=== PATIENT | male | born 1955 | race Caucasian/White ===

== ENCOUNTER → 2016-09-10 | Outpatient (CLI) | payer OTHER ==
[~2016-09-10] MED LIST: DIAZ-165 PO; DICL50TA3 PO; GABA-113 PO; HYD50 PO; LISI-461 PO; PRAV40TA2 PO
[2016-09-10 12:46] LABS: ESTIMATED AVERAGE GLUCOSE 131 mg/dl; HA1C FLAG Normal (Normal)
[2016-09-10 13:11] LABS: ALT/SGPT 33 U/L (12-78); BLOOD UREA NITROGEN 21 mg/dl (7-18); BUN/CREATININE RATIO 21.3 (10-20); CALCIUM 9.6 mg/dl (8.5-10.1); CARBON DIOXIDE 30 mmol/L (21-32); CHLORIDE 104 mmol/L (98-107); CHOLESTEROL 221 mg/dl (0-200); CREATININE 0.98 mg/dl (0.60-1.40); GLUCOSE 118 mg/dl (70-99); POTASSIUM 3.9 mmol/L (3.5-5.1); SODIUM 138 mmol/L (136-145); TRIGLYCERIDES 99 mg/dl (0-150); VERY LOW DENSITY LIPOPROT CALC 20 mg/dl
[2016-09-10 13:15] LABS: ALB/GLOB RATIO 1.3 (0.9-2); ALKALINE PHOSPHATASE 74 U/L (45-117); AST/SGOT 15 U/L (15-37); CHOLESTEROL/HDL RATIO 3.7; HDL CHOLESTEROL 59 mg/dl; LDL CHOLESTEROL CALCULATED 142 mg/dl
== END | disposition home or self-care (01) ==
LOC: C.LABPVFM 08:27
PROVIDERS: ATTEND Nurse Practitioner
DX: R73.01 Impaired fasting glucose (principal); I10 Essential (primary) hypertension; E78.5 Hyperlipidemia, unspecified

== ENCOUNTER 2022-05-12 19:32 | Inpatient (IN) ==
[2022-05-12] MEDS ORDERED: methylPREDNISolone 125 MG/2 ML VIAL IV STA (19:46)
[2022-05-12] MEDS ORDERED: ALBUT/IPRATROP 3MG/0.5MG NEB 3 ML VIAL NEB STA (19:46)
[2022-05-12] MEDS ORDERED: SODIUM CHLORIDE 0.9% 500 ML IV STA (19:46)
[2022-05-12] MEDS ORDERED: CEFEPIME 2,000 MG/20 ML VIAL IV STA (19:48)
--- NOTE | 2022-05-12 19:53 | Emergency Department Note ---
Impression & Plan Hypoxia, Wheezing, SOB (shortness of breath), Pneumonia, Coronavirus infection ED Provider Note NAME: RADHAMES LOCKE AGE: 66 SEX: M : 1955 ARRIVES VIA: Walk-In INFORMANT: [Patient][] ED PROVIDER(S): [Sanchez Gonzalez MD] CHIEF COMPLAINT: Short of breath HISTORY OF PRESENT ILLNESS: The patient is a 66-year-old male who has been ill for 4 days. He has had a cough, some shortness of breath and a fever. He has been tired. He has become more more short of breath with exertion. No vomiting or diarrhea, no sick contacts. As per his family, an at home COVID test was negative. His O2 saturation by pulse ox was 87% at home. The patient does not have any coronary disease diagnosed. He does have a history of previous pneumonia. He does smoke. He has a history of diabetes, hypertension and high cholesterol. PMHx/PSHx: See Below SOCIAL HISTORY: See Below. PHYSICAL EXAM: GENERAL: Patient is in no acute distress. HEENT: No acute trauma, normocephalic atraumatic, mucous membranes moist, no nasal congestion. NECK: No stridor, no adenopathy, no meningismus, trachea is midline. LUNGS: Diminished breath sounds bilaterally. There are some wheezes and a few scattered crackles heard bilaterally. No obvious respiratory distress HEART: Without murmurs gallops or rubs, regular rate and rhythm. ABDOMEN: Soft, nontender, bowel sounds positive, no peritonitis. EXTREMITIES: No cyanosis or edema, full range of motion of all the joints without pain or difficulty, no signs for acute trauma. NEUROLOGIC: Oriented x 3, no acute motor or sensory deficits, no focal weakness. SKIN: No rash, no jaundice, no diaphoresis. DIFFERENTIAL DIAGNOSIS: Bronchitis or pneumonia, CHF, RSV, COVID-19, generalized viral illness, anemia, electrolyte imbalance, cardiac ischemia, among others. EMERGENCY DEPARTMENT COURSE/PROCEDURES: Prior/Outside records reviewed: None. ECG per my interpretation: Indication was shortness of breath. The ECG shows a normal sinus rhythm with a rate of 83. There is some baseline artifact. There is a potential old septal infarct versus some poor R wave progression. T here is no ST elevation, no PVCs. The QTc is 411 Continuous Cardiac Monitoring per my interpretation: An order was placed for continuous cardiac monitoring. The monitor shows a rate of 92 with normal sinus rhythm. MEDICAL DECISION MAKING: There is no leukocytosis or concerning anemia. There is a normal platelet count. No coagulopathy. No renal failure or significant electrolyte abnormality. Lactic acid level is not elevated making severe sepsis less likely. No concerning liver enzyme elevation. ECG shows a normal sinus rhythm, no ischemia. Cardiac enzyme testing x1 is not consistent with acute cardiac injury. Respiratory bio fire returned positive for a coronavirus, not COVID-19. Chest film shows a potential lower lung infiltrate on the right per my review. No pneumothorax or CHF. On exam, the patient was wheezing with diminished breath sounds. He was hypoxic. The patient received 500 cc of IV saline, he was given IV Solu-Medrol, IV cefepime, oral Zithromax. He was given a DuoNeb and albuterol via MDI. Despite the above treatment, the patient remains hypoxic when the oxygen is discontinued. He does well when supplemental O2 is applied. The patient appears to have an early pneumonia as well as a bronchitis--his respiratory bio fire is positive, this has caused his shortness of breath and wheezing. Given the hypoxia, hospitalization is indicated. I did speak with the patient and case management, the on-call hospitalist was consulted. DISPOSITION: Patient's presentation and findings warrant a hospital stay. Past Med/Surg History Medical History Diabetes mellitus Hyperlipidemia Hypertension Surgical History No pertinent past surgical history Family History Father Myocardial infarction Denies family history of Ovarian cancer Prostate cancer Breast cancer Colorectal cancer Social History Smoking Status: Current every day smoker Tobacco Type: Cigarettes Age Started Using Tobacco: 25; Cigarettes Per Day: 10; Second Hand Exposure: No; Hx Alcohol Use: Yes Hx Substance Use: No Preferred Language: Kazakh Communication Ability: Effective Instrument And Electrical Technician Required: No marital status: Current Living Situation: Spouse current occupational status: employed current occupation: Drive Truck How many Children do You have: 3 Feels Safe at Home: Yes Childhood Exposure to Second-Hand Smoke: No caffeine: Yes Dental Care, Regularly: Yes Physical Activity Frequency: Daily Seatbelt Use: always Sunscreen Use: No Allergies Allergies Allergy/AdvReac Type Severity Reaction Status Date / Time No Known Allergies Allergy Verified 05/12/22 21:30 Home Meds Home Medications Medication Instructions Recorded Confirmed ketoconazole 2 % topical cream 1 applic topical DAILY PRN flare 05/06/22 05/12/22 ups metformin 500 mg tablet,extended 500 mg PO BID 05/12/22 05/12/22 release 24 hr Previous Rx's Medication Instructions Recorded atorvastatin 40 mg tablet 40 mg PO DAILY #90 tabs 08/20/21 hydrochlorothiazide 50 mg tablet 50 mg PO .COMPLEX #90 tabs 08/20/21 lisinopril 10 mg tablet 10 mg PO DAILY #90 tabs 08/20/21 Results & Data (ED) Vital Signs Vital Signs - 24 hr 05/12/22 19:35 05/12/22 20:07 05/12/22 20:33 Temperature 36.7 C Temperature Source Temporal Artery Scan Pulse Rate 92 H 87 Pulse Rate [Finger] 76 Respiratory Rate 18 18 Blood Pressure 140/91 Blood Pressure [Right Arm] 154/93 H Blood Pressure Mean 107 Blood Pressure Mean [Right Arm] 113 Pulse Oximetry 89 L 100 96 Oxygen Delivery Method Room Air Nebulizer Room Air Oxygen Flow Rate Sepsis Recent Fever Within 48 Hours No Sepsis New/Unexplained Change in Mental Status No Sepsis Action Taken by Nursing No Action Required 05/12/22 21:05 05/12/22 21:05 Temperature Temperature Source Pulse Rate Pulse Rate [Finger] Respiratory Rate Blood Pressure Blood Pressure [Right Arm] Blood Pressure Mean Blood Pressure Mean [Right Arm] Pulse Oximetry 89 L 94 Oxygen Delivery Method Room Air Nasal Cannula Oxygen Flow Rate 2 Sepsis Recent Fever Within 48 Hours Sepsis New/Unexplained Change in Mental Status Sepsis Action Taken by [facility] Medications Current Medication List: was personally reviewed by me Laboratory Data Attestation: I reviewed the patient's lab results. 05/12/22 19:46 05/12/22 19:46 Lab Results 05/12/22 05/12/22 05/12/22 Range/Units 19:46 19:46 19:46 WBC 5.85 (4.8-10.8) K/ul RBC 5.20 (4.70-6.10) M/uL Hgb 15.8 (14.0-18.0) g/dl Hct 45.5 (42.0-52.0) % MCV 87.5 (80.0-100.0) fL MCH 30.4 (25.0-34.0) pg MCHC 34.7 (32.0-36.0) g/dL RDW Std Deviation 41.3 (36.4-46.3) fL RDW Coeff of [place] 12.9 (11.5-14.5) % Plt Count 175 (130-400) K/uL MPV 10.7 (9.4-12.4) fL Immature Gran % (Auto) 0.3 % Neut % (Auto) 69.5 % Lymph % (Auto) 13.3 % [place] % (Auto) 14.5 % Eos % (Auto) 1.5 % Baso % (Auto) 0.9 % Neut # (Auto) 4.06 (1.40-6.50) K/uL Lymph # (Auto) 0.78 L (1.2-3.4) K/uL [place] # (Auto) 0.85 H (0.11-0.59) K/uL Eos # (Auto) 0.09 (0-0.50) K/uL Baso # (Auto) 0.05 (0-0.2) K/uL Immature Gran # (Auto) 0.02 (0.01-0.20) K/uL PT 10.7 (9.0-12.0) Seconds INR 1.0 (0.9-1.1) APTT 30.4 (21.0-31.0) Seconds PTT Ratio 1.1 Sodium 134 L (136-145) mmol/L Potassium 3.8 (3.5-5.1) mmol/L Chloride 97 L (98-107) mmol/L Carbon Dioxide 30 (21-32) mmol/L Anion Gap 7 (3-11) BUN 18 (6-23) mg/dl Creatinine 0.77 (0.6-1.4) mg/dl Est Cr Clr Drug Dosing 116.0 ml/min Est GFR ( Amer) 109.6 ml/min Est GFR (Non-Af Amer) 94.6 ml/min BUN/Creatinine Ratio 23.4 H (10-20) Glucose 273 H (70-99(Fasting)) mg/dl Lactate (0.4-2.0) mmol/L Calcium 9.7 (8.5-10.1) mg/dl Magnesium 2.1 (1.7-2.4) mg/dl Total Bilirubin 0.5 (0.2-1.0) mg/dl AST 14 (13-39) U/L ALT 24 (7-52) U/L Alkaline Phosphatase 91 (34-104) U/L Troponin I High Sens 4.8 (0-20) pg/ml Total Protein 7.9 (6.0-8.3) gm/dl Albumin 4.6 (3.4-5.0) gm/dl Globulin 3.3 (2.5-4.0) gm/dl Albumin/Globulin Ratio 1.4 (0.9-2) Adenovirus (PCR) (NotDetected) B. pertussis DNA (PCR) (NotDetected) B.parapertussis DNA PCR (NotDetected) C. pneumoniae DNA (PCR) (NotDetected) Coronavirus OC43 (PCR) (NotDetected) Coronavirus HKU1 (PCR) (NotDetected) Coronavirus 229E (PCR) (NotDetected) SARS-CoV-2 (PCR) (NotDetected) Coronavirus NL63 (PCR) (NotDetected) Human Metapneumovir PCR (NotDetected) Influenza Type A (PCR) (NotDetected) Influenza Type B (PCR) (NotDetected) M. pneumoniae (PCR) (NotDetected) Parainfluenza 1 (PCR) (NotDetected) Parainfluenza 2 (PCR) (NotDetected) Parainfluenza 3 (PCR) (NotDetected) Parainfluenza 4 (PCR) (NotDetected) RSV (PCR) (NotDetected) Entero/Rhino (PCR) (NotDetected) 05/12/22 05/12/22 Range/Units 19:46 20:02 WBC (4.8-10.8) K/ul RBC (4.70-6.10) M/uL Hgb (14.0-18.0) g/dl Hct (42.0-52.0) % MCV (80.0-100.0) fL MCH (25.0-34.0) pg MCHC (32.0-36.0) g/dL RDW Std Deviation (36.4-46.3) fL RDW Coeff of [place] (11.5-14.5) % Plt Count (130-400) K/uL MPV (9.4-12.4) fL Immature Gran % (Auto) % Neut % (Auto) % Lymph % (Auto) % [place] % (Auto) % Eos % (Auto) % Baso % (Auto) % Neut # (Auto) (1.40-6.50) K/uL Lymph # (Auto) (1.2-3.4) K/uL [place] # (Auto) (0.11-0.59) K/uL Eos # (Auto) (0-0.50) K/uL Baso # (Auto) (0-0.2) K/uL Immature Gran # (Auto) (0.01-0.20) K/uL PT (9.0-12.0) Seconds INR (0.9-1.1) APTT (21.0-31.0) Seconds PTT Ratio Sodium (136-145) mmol/L Potassium (3.5-5.1) mmol/L Chloride (98-107) mmol/L Carbon Dioxide (21-32) mmol/L Anion Gap (3-11) BUN (6-23) mg/dl Creatinine (0.6-1.4) mg/dl Est Cr Clr Drug Dosing ml/min Est GFR ( Amer) ml/min Est GFR (Non-Af Amer) ml/min BUN/Creatinine Ratio (10-20) Glucose (70-99(Fasting)) mg/dl Lactate 1.5 (0.4-2.0) mmol/L Calcium (8.5-10.1) mg/dl Magnesium (1.7-2.4) mg/dl Total Bilirubin (0.2-1.0) mg/dl AST (13-39) U/L ALT (7-52) U/L Alkaline Phosphatase (34-104) U/L Troponin I High Sens (0-20) pg/ml Total Protein (6.0-8.3) gm/dl Albumin (3.4-5.0) gm/dl Globulin (2.5-4.0) gm/dl Albumin/Globulin Ratio (0.9-2) Adenovirus (PCR) Not Detected (NotDetected) B. pertussis DNA (PCR) Not Detected (NotDetected) B.parapertussis DNA PCR Not Detected (NotDetected) C. pneumoniae DNA (PCR) Not Detected (NotDetected) Coronavirus OC43 (PCR) DETECTED A* (NotDetected) Coronavirus HKU1 (PCR) Not Detected (NotDetected) Coronavirus 229E (PCR) Not Detected (NotDetected) SARS-CoV-2 (PCR) Not Detected (NotDetected) Coronavirus NL63 (PCR) Not Detected (NotDetected) Human Metapneumovir PCR Not Detected (NotDetected) Influenza Type A (PCR) Not Detected (NotDetected) Influenza Type B (PCR) Not Detected (NotDetected) M. pneumoniae (PCR) Not Detected (NotDetected) Parainfluenza 1 (PCR) Not Detected (NotDetected) Parainfluenza 2 (PCR) Not Detected (NotDetected) Parainfluenza 3 (PCR) Not Detected (NotDetected) Parainfluenza 4 (PCR) Not Detected (NotDetected) RSV (PCR) Not Detected (NotDetected) Entero/Rhino (PCR) Not Detected (NotDetected) Administered Medications Discontinued Medications Albuterol (Albut/Ipratrop 3mg/0.5mg Neb 3 Ml Vial) 3 ml NEB NOW STA; Protocol Stop: 05/12/22 19:47 Last Admin: 05/12/22 20:01 Dose: 3 ml Documented By: FABIANA Albuterol (Albuterol Hfa 8 Gm Inhaler) 3 puffs INH NOW ONE Stop: 05/12/22 20:35 Last Admin: 05/12/22 21:04 Dose: 3 puffs Documented By: THOMAS Sodium Chloride (Nss) 500 mls @ 999 mls/hr IV .Q31M STA Stop: 05/12/22 20:16 Last Infusion: 05/12/22 20:46 Dose: 0 mls/hr Documented By: Admin: 05/12/22 20:01 Dose: 999 mls/hr Documented By: FABIANA Cefepime HCl (Maxipime) 2,000 mg in 20 mls @ 5 mls/min IV NOW STA; Protocol Stop: 05/12/22 19:51 Last Admin: 05/12/22 20:17 Dose: 5 mls/min Documented By: FABIANA Methylprednisolone (Methylprednisolone 125 Mg/2 Ml Vial) 60 mg IV NOW STA Stop: 05/12/22 19:47 Last Admin: 05/12/22 20:00 Dose: 60 mg Documented By: FABIANA Imaging Data Radiologist's Impression: Chest X-Ray 05/12/22 19:46 XR chest 1V portable HISTORY: Dyspnea COMPARISON: None. FINDINGS: The lungs are clear. Cardiac silhouette is normal in size. No pleural effusions. No pneumothorax. IMPRESSION: No acute process. ACT 112: Negative or not required by law. Electronically signed by: Wayne Talley M.D. 05/12/2022 8:06 PM Discharge Plan Visit Data Chief Complaint: Respiratory Problems Stated Complaint: RESPIRATORY PROBLEMS,SOB ED Provider: Sanchez Gonzalez Discharge Problem: Hypoxia, Wheezing, SOB (shortness of breath), Pneumonia, Coronavirus infection Patient Disposition: Admitted As Inpatient Condition: Fair Forms Stand Alone Forms: My [facility] Prescriptions Prescriptions: No Action atorvastatin 40 mg tablet 40 mg PO DAILY Qty: 90 3RF lisinopril 10 mg tablet 10 mg PO DAILY Qty: 90 3RF hydrochlorothiazide 50 mg tablet 50 mg PO .COMPLEX Qty: 90 3RF Rx Instructions: 50 mg PO daily in the morning with orange juice.; ketoconazole 2 % cream 1 applic topical DAILY PRN (Reason: flare ups) metformin 500 mg tablet extended release 24 hr 500 mg PO BID Referrals Referrals: Pricilla Rojas CRNP [Primary Care Provider] -
--- NOTE | 2022-05-12 20:07 | XRay Report ---
XR chest 1V portable HISTORY: Dyspnea COMPARISON: None. FINDINGS: The lungs are clear. Cardiac silhouette is normal in size. No pleural effusions. No pneumot horax. IMPRESSION: No acute process. ACT 112: Negative or not required by law. Electronically signed by: Wayne Talley M.D. 05/12/2022 8:06 PM
[2022-05-12 20:10] LABS: Basophils # (auto) 0.05 K/uL (0-0.2); Basophils % (auto) 0.9 %; Eosinophils # (auto) 0.09 K/uL (0-0.50); Eosinophils % (auto) 1.5 %; Hematocrit (blood only) 45.5 % (42.0-52.0); Hemoglobin 15.8 g/dl (14.0-18.0); Immature Granulocytes # (auto) 0.02 K/uL (0.01-0.20); Immature Granulocytes % (auto) 0.3 %; Lymphocytes # (auto) 0.78 K/uL (1.2-3.4); Lymphocytes % (auto) 13.3 %; Mean Corpuscular Hemoglobin 30.4 pg (25.0-34.0); Mean Corpuscular Hgb Conc 34.7 g/dL (32.0-36.0); Mean Corpuscular Volume 87.5 fL (80.0-100.0); Mean Platelet Volume 10.7 fL (9.4-12.4); Monocytes # (auto) 0.85 K/uL (0.11-0.59); Monocytes % (auto) 14.5 %; Neutrophils # (auto) 4.06 K/uL (1.40-6.50); Neutrophils % (auto) 69.5 %; Platelet Count 175 K/uL (130-400); RDW Coefficient of Variation 12.9 % (11.5-14.5); RDW Standard Deviation 41.3 fL (36.4-46.3); White Blood Count 5.85 K/ul (4.8-10.8)
[2022-05-12 20:24] LABS: Albumin Globulin Ratio 1.4 (0.9-2); Albumin Level 4.6 gm/dl (3.4-5.0); BUN Creatinine Ratio 23.4 (10-20); Bilirubin,Total 0.5 mg/dl (0.2-1.0); Calcium 9.7 mg/dl (8.5-10.1); Est GFR (African American) 109.6 ml/min; Est GFR (Non-African American) 94.6 ml/min; Globulin 3.3 gm/dl (2.5-4.0); Magnesium 2.1 mg/dl (1.7-2.4); Potassium 3.8 mmol/L (3.5-5.1); Total Protein 7.9 gm/dl (6.0-8.3)
[2022-05-12 20:30] LABS: Troponin I High Sensitivity 4.8 pg/ml (0-20)
[2022-05-12] MEDS ORDERED: ALBUTEROL HFA 8 GM INHALER INH ONE (20:34)
[2022-05-12 20:54] LABS: Partial Thromboplastin Ratio 1.1; Partial Thromboplastin Time 30.4 Seconds (21.0-31.0); Prothrombin Time 10.7 Seconds (9.0-12.0)
[2022-05-12 21:01] LABS: Adenovirus PCR Not Detected (NotDetected); Bordetella parapertussis PCR Not Detected (NotDetected); Bordetella pertussis PCR Not Detected (NotDetected); Chlamydia pneumoniae PCR Not Detected (NotDetected); Coronavirus 229E PCR Not Detected (NotDetected); Coronavirus CoV-2 (COVID19)PCR Not Detected (NotDetected); Coronavirus HKU1 PCR Not Detected (NotDetected); Coronavirus NL63 PCR Not Detected (NotDetected); Human Metapneumovirus PCR Not Detected (NotDetected); Influenza A PCR Not Detected (NotDetected); Influenza B PCR Not Detected (NotDetected); Mycoplasma pneumoniae PCR Not Detected (NotDetected); Parainfluenza Virus 1 PCR Not Detected (NotDetected); Parainfluenza Virus 2 PCR Not Detected (NotDetected); Parainfluenza Virus 3 PCR Not Detected (NotDetected); Parainfluenza Virus 4 PCR Not Detected (NotDetected); Respiratory Syncytial VirusPCR Not Detected (NotDetected); Rhinovirus/Enterovirus PCR Not Detected (NotDetected)
[2022-05-12 21:11] LABS: Coronavirus OC43PCR DETECTED (NotDetected)
[2022-05-12] MEDS ORDERED: AZITHROMYCIN 250 MG TAB PO ONE (21:14)
--- NOTE | 2022-05-12 22:17 | History & Physical Report ---
Date of Service May 12, 2022 Assessment & Plan (1) Hypoxia: Plan: Patient is a 66-year-old male with a past medical history of hyperlipidemia, hypertension, and diabetes on metformin who presents to the emergency department for 3 to 4-day history of progressively worsening shortness of breath and congestion. Patient was put on supplemental oxygen and is currently hemodynamically stable. Patient is status post cefepime, azithromycin, initial steroid dose, and breathing treatment. -Admit to [facility] on supplemental oxygen -Suspect undiagnosed COPD with COPD exacerbation due to coronavirus infection. Other differential could include early viral pneumonia. -First dose of azithromycin given in ED, 3-day course of 500 mg IV orders placed -Steroids for 5 days -Incentive spirometry and flutter valve ordered -DuoNeb nebulizer every 4 hour as needed -Recommend nicotine cessation -Nicotine patch ordered -Procalcitonin pending, but suspect as above (2) Wheezing: Plan: See plan above (3) Coronavirus infection: Plan: See plan above (4) Diabetes mellitus: Plan: -Metformin switch to basal bolus insulin with sliding scale (5) Hyperlipidemia: Plan: -Continue atorvastatin (6) Hypertension: Plan: -contine lisinopril and HCTZ Plan Diet: Carb consistent Disposition: Admit to [facility] with supplemental oxygen DVT prophylaxis: Lovenox CODE STATUS: Full code History of Present Illness Chief Complaint: SOB Primary Care Provider: SHAYNA Ascencio Patient is a 66-year-old male with a past medical history of hyperlipidemia, hypertension, and diabetes on metformin who presents to the emergency department for 3 to 4-day history of progressively worsening shortness of breath and congestion. Patient reports that he was getting shortness of breath with exertion, however, today he was experiencing the shortness of breath at rest. He has a pulse ox at home and found that his pulse ox was in the 80s. This pr ompted him to come to the emergency room for further evaluation. He does have a 20+ pack year smoking history currently smoking a pack of cigarettes per day. No formal diagnosis of COPD. Reports that he has never wheezed or had difficulty with breathing before. Reports that he never measured his temperature but he was feeling warm and had chills. No vomiting, diarrhea, nausea, headache. Patient is COVID vaccinated. No other complaints at this time. ED course: Lab results were significant for hyponatremia at 134, glucose of 273, most recent hemoglobin A1c of 7.2, and positive coronavirus OC 43 detected. Patient is COVID-negative. Chest x-ray taken did not show any acute pulmonary or cardiac pathology. Patient was given cefepime, azithromycin, methylprednisone, and breathing treatments. The hospital service was then consulted for admission to the hospital. Allergies Allergy/AdvReac Type Severity Reaction Status Date / Time No Known Allergies Allergy Verified 05/16/22 10:38 Home Medications Medication Instructions Recorded Confirmed Type atorvastatin 40 mg tablet 40 mg PO DAILY #90 tabs 08/20/21 05/16/22 Rx hydrochlorothiazide 50 mg tablet 50 mg PO .COMPLEX #90 tabs 08/20/21 05/16/22 Rx lisinopril 10 mg tablet 10 mg PO DAILY #90 tabs 08/20/21 05/16/22 Rx ketoconazole 2 % topical cream 1 applic topical DAILY PRN flare 05/06/22 05/16/22 History ups metformin 500 mg tablet,extended 500 mg PO BID 05/12/22 05/16/22 History release 24 hr azithromycin 250 mg tablet 500 mg PO Q24H #2 tabs 05/14/22 05/16/22 Rx prednisone 10 mg tablet 10 mg PO DAILY #20 tabs 05/14/22 05/16/22 Rx Past Med/Surg History Medical History Diabetes mellitus Hyperlipidemia Hypertension Surgical History No pertinent past surgical history Family History Father Myocardial infarction Denies family history of Ovarian cancer Prostate cancer Breast cancer Colorectal cancer Social History Smoking Status: Current every day smoker Tobacco Type: Cigarettes Age Started Using Tobacco: 25; Cigarettes Per Day: 10; Second Hand Exposure: No; Hx Alcohol Use: No Hx Substance Use: No Preferred Language: Sami Communication Ability: Effective Product Sales Representative Required: No Beliefs That Will Affect Care: None marital status: Current Living Situation: Spouse current occupational status: employed current occupation: Drive Truck How many Children do You have: 3 Feels Safe at Home: Yes Childhood Exposure to Second-Hand Smoke: No caffeine: Yes Dental Care, Regularly: Yes Physical Activity Frequency: Daily Seatbelt Use: always Sunscreen Use: No Assistive Devices: None Review of Systems Review of Systems: All systems reviewed & are unremarkable except as noted in HPI & below Physical Exam Constitutional: WD/WN, vitals as above Eyes: + anicteric sclerae ENMT: external ear and nose normal, oropharynx normal Neck: trachea midline, no thyromegaly Respiratory: normal respiratory effort; no respiratory distress Auscultation: + wheezes and + bronchial breath sounds Cardiovascular: RRR, no murmur, no edema Gastrointestinal (Abdomen): normal bowel sounds, soft, nontender, no hepatosplenomegaly Musculoskeletal: Head/Neck/Chest: normocephalic and head atraumatic Skin: no rashes, warm and dry Neurologic: moves all extremities Psychiatric: A+Ox3, euthymic affect Lymphatic: no cervical or axillary lymphadenopathy Results & Data Results & Data Vital Signs (Past 12 Hours) Vital Signs Temp Pulse Pulse Resp BP BP Pulse Ox 05/12/22 21:05 94 05/12/22 21:05 89 L 05/12/22 20:33 76 18 154/93 H 96 05/12/22 20:07 87 100 05/12/22 19:35 36.7 C 92 H 18 140/91 89 L O2 Del Method O2 Flow Rate 05/12/22 21:05 Nasal Cannula 2 05/12/22 21:05 Room Air 05/12/22 20:33 Room Air 05/12/22 20:07 Nebulizer 05/12/22 19:35 Room Air Code Status & VTE Plan VTE Prophylaxis Plan VTE Prophylaxis will be ordered: Yes Supervising Physician Co-Signing Physician Notes attending addendum: I have physically seen this patient, have supervised the medical residents activities, and agree with the H&P unless as otherwise noted. Assessment and Plan: Acute respiratory failure with hypoxia- Viral study positive for coronavirus OC 43 In the ED received the following: NSS 500 mL, DuoNeb treatment, cefepime 2 g IV, Solu-Medrol 60 mg IV and azithromycin 500 mg p.o. Methylprednisolone 40 mg IV every 12 hours Incentive spirometry and flutter valve Duonebs every 4 hours while awake and every 2 hours when necessary. Continue azithromycin p.o. Diabetes mellitus- Hold metformin Placed on Accu-Cheks with NovoLog SSI Check hemoglobin A1c Hyperlipidemia- Continue atorvastatin check a fasting lipid panel Hypertension- Continue lisinopril and HCTZ Remaining orders and notations as noted
[2022-05-12] MEDS ORDERED: ALBUT/IPRATROP 3MG/0.5MG NEB 3 ML VIAL NEB PRN (23:16)
[2022-05-12] MEDS ORDERED: DEXTROSE 50% 50 ML SYRINGE IV PRN (23:16)
[2022-05-12] MEDS ORDERED: GLUCOSE 10 TAB/TUBE PO PRN (23:16)
[2022-05-12] MEDS ORDERED: ONDANSETRON INJ 2 MG/ML 2 ML VIAL IV PRN (23:16)
[2022-05-12] MEDS ORDERED: CARBOHYDRATES FOR HYPOGLYCEMIA PO PRN (23:16)
[2022-05-12] MEDS ORDERED: GLUCOSE 40% GEL 15 GM TUBE PO PRN (23:16)
[2022-05-12] MEDS ORDERED: ACETAMINOPHEN 325 MG TAB PO PRN (23:16)
[2022-05-12] MEDS ORDERED: GLUCAGON FOR INJ 1 MG VIAL SQ PRN (23:16)
[2022-05-12] MEDS ORDERED: POLYETHYLENE (MIRALAX) 17 GM PACK PO PRN (23:16)
[2022-05-12] MEDS ORDERED: INFLUENZA VACCINE HIGH DOSE PF 65+ 0.7 ML SYR IM ONE (23:28)
[2022-05-12] MEDS: LANTUS PER UNIT CHARGE SQ SCH (23:47)
[2022-05-12] MEDS: INSULIN ASPART PER UNIT CHARGE SC SCH (23:47)
[2022-05-13] MEDS: ENOXAPARIN INJ 40 MG/0.4 ML SYR SQ SCH ×2 (00:10→21:01)
[2022-05-13] MEDS ORDERED: predniSONE 20 MG TAB PO SCH (09:00)
[2022-05-13] MEDS: NICOTINE 14 MG/24 HR PATCH TD SCH (09:17)
[2022-05-13] MEDS: hydroCHLOROthiazide 25 MG TAB PO SCH (09:18)
[2022-05-13] MEDS: ATORVASTATIN 40 MG TAB PO SCH (09:18)
[2022-05-13] MEDS: lisinopril 10 MG TAB PO SCH (09:19)
[2022-05-13] MEDS: LANTUS PER UNIT CHARGE SQ SCH ×2 (09:25→21:01)
[2022-05-13] MEDS: INSULIN ASPART PER UNIT CHARGE SC SCH ×4 (09:26→21:01)
--- NOTE | 2022-05-13 11:01 | Electrocardiogram Report ---
Test Reason : Blood Pressure : / mmHG Vent. Rate : 083 BPM Atrial Rate : 083 BPM P-R Int : 156 ms QRS Dur : 084 ms QT Int : 350 ms P-R-T Axes : 072 068 063 degrees QTc Int : 411 ms Poor data quality, interpretation may be adversely affected Normal sinus rhythm Possible Left atrial enlargement Abnormal ECG No previous ECGs available Confirmed by Yunier Quintana ([id number]) on 05/13/2022 11:01:46 AM Referred By: REFERRED SELF Confirmed By:Jey Quintana
--- NOTE | 2022-05-13 15:00 | Hospitalist Progress Note ---
Date of Service May 13, 2022 Assessment & Plan (1) Hypoxia: Plan: -Suspect undiagnosed COPD with COPD exacerbation due to coronavirus infection. Other differential could include early viral pneumonia. -Continue azithromycin 3-day course of 500 mg IV -Patient is still wheezing quite a bit and is also dyspneic on exertion We will switch to IV steroids. Discontinue p.o. prednisone for the time being. -Incentive spirometry and flutter valve ordered -DuoNeb nebulizer every 4 hour as needed -Recommend nicotine cessation -Nicotine patch ordered -Procalcitonin negative (2) Wheezing: Plan: See plan above (3) Coronavirus infection: Plan: See plan above (4) Diabetes mellitus: Plan: -Metformin switch to basal bolus insulin with sliding scale (5) Hyperlipidemia: Plan: -Continue atorvastatin (6) Hypertension: Plan: -contine lisinopril and HCTZ Plan Diet: Carb consistent Disposition: Admit to [facility] with supplemental oxygen DVT prophylaxis: Lovenox CODE STATUS: Full code Admission and Anticipated Discharge Date Admission Date: May 12, 2022 Subjective Patient states that he is less short of breath today but is still getting short of breath on exertion. Review of Systems Review of Systems: All systems reviewed & are unremarkable except as noted in Subjective Physical Exam Physical Exam: General: Awake, conversant Heart: S1, S2/regular rate and rhythm, no murmur rubs or gallops Lungs: Bilateral wheezing with prolonged expiration. Normal effort Abdomen: Soft/nontender/nondistended. No hepatosplenomegaly Extremities: No clubbing/cyanosis. No edema Behavior: Appropriate, cooperative Results & Data Results & Data Vital Signs (Past 12 Hours) Vital Signs Temp Pulse Resp BP Pulse Ox O2 Del Method O2 Flow Rate 05/13/22 08:15 Nasal Cannula 2 05/13/22 09:15 68 151/85 H 93 Nasal Cannula 2 05/13/22 07:44 36.8 C 73 18 149/94 H 94 Nasal Cannula 1 Laboratory Results Abnormal lab results 05/12/22 05/12/22 05/12/22 Range/Units 19:46 19:46 19:46 Lymph # (Auto) 0.78 L (1.2-3.4) K/uL [place] # (Auto) 0.85 H (0.11-0.59) K/uL Sodium 134 L (136-145) mmol/L Chloride 97 L (98-107) mmol/L BUN/Creatinine Ratio 23.4 H (10-20) Glucose 273 H (70-99(Fasting)) mg/dl POC Glucose (70-99) mg/dl Coronavirus OC43 (PCR) DETECTED A* (NotDetected) 05/12/22 05/13/22 05/13/22 Range/Units 23:18 08:00 12:07 Lymph # (Auto) (1.2-3.4) K/uL [place] # (Auto) (0.11-0.59) K/uL Sodium (136-145) mmol/L Chloride (98-107) mmol/L BUN/Creatinine Ratio (10-20) Glucose (70-99(Fasting)) mg/dl POC Glucose 203 H 134 H 127 H (70-99) mg/dl Coronavirus OC43 (PCR) (NotDetected) Diagnostic Findings Chest X-Ray 05/12/22 19:46 XR chest 1V portable HISTORY: Dyspnea COMPARISON: None. FINDINGS: The lungs are clear. Cardiac silhouette is normal in size. No pleural effusions. No pneumothorax. IMPRESSION: No acute process. ACT 112: Negative or not required by law. Electronically signed by: Wayne Talley M.D. 05/12/2022 8:06 PM PG Care Time/CCT Total # of Minutes Spent Total Time Spent with Patient: Total time spent is greater than 50% in coordination of care (as documented) at patient's floor/unit and/or counseling patient: Coding Level of Care Code 88204 SUB INP/OBS CARE 2/35MIN Diagnoses Hypoxia R09.02 Wheezing R06.2 Coronavirus infection B34.2 Diabetes mellitus E11.9 Hyperlipidemia E78.5 Hypertension I10
[2022-05-13] MEDS: AZITHROMYCIN 250 MG TAB PO SCH (17:55)
[2022-05-13] MEDS: methylPREDNISolone 40 MG in SYRINGE 0 ML IV SCH (21:01)
[2022-05-14] MEDS: ATORVASTATIN 40 MG TAB PO SCH (08:23)
[2022-05-14] MEDS: hydroCHLOROthiazide 25 MG TAB PO SCH (08:24)
[2022-05-14] MEDS: lisinopril 10 MG TAB PO SCH (08:24)
[2022-05-14] MEDS: NICOTINE 14 MG/24 HR PATCH TD SCH (08:25)
[2022-05-14] MEDS: methylPREDNISolone 40 MG in SYRINGE 0 ML IV SCH (08:26)
[2022-05-14] MEDS: LANTUS PER UNIT CHARGE SQ SCH ×2 (09:17→21:00)
[2022-05-14] MEDS: INSULIN ASPART PER UNIT CHARGE SC SCH ×4 (09:18→20:52)
--- NOTE | 2022-05-14 16:58 | Hospitalist Progress Note ---
Date of Service May 14, 2022 Assessment & Plan (1) Hypoxia: Plan: -Suspect undiagnosed COPD with COPD exacerbation due to coronavirus infection. Other differential could include early viral pneumonia. -Continue azithromycin 3-day course of 500 mg IV -Patient is still wheezing and is also dyspneic on exertion Discontinue IV steroids today. Start p.o. prednisone from tomorrow -Incentive spirometry and flutter valve ordered -DuoNeb nebulizer every 4 hour as needed -Recommend nicotine cessation -Nicotine patch ordered -Procalcitonin negative Two-step test to see if needing oxygen to go home with (2) Wheezing: Plan: See plan above (3) Coronavirus infection: Plan: See plan above (4) Diabetes mellitus: Plan: -Metformin switch to basal bolus insulin with sliding scale (5) Hyperlipidemia: Plan: -Continue atorvastatin (6) Hypertension: Plan: -contine lisinopril and HCTZ Plan Diet: Carb consistent [facility]: [facility] DVT prophylaxis: Lovenox CODE STATUS: Full code Admission and Anticipated Discharge Date Admission Date: May 12, 2022 Subjective Patient states that he is less short of breath today but is still getting short of breath on exertion. Review of Systems Review of Systems: All systems reviewed & are unremarkable except as noted in Subjective Physical Exam Physical Exam: General: Awake, conversant Heart: S1, S2/regular rate and rhythm, no murmur rubs or gallops Lungs: Bilateral wheezing slightly better today with prolonged expiration. Normal effort Abdomen: Soft/nontender/nondistended. No hepatosplenomegaly Extremities: No clubbing/cyanosis. No edema Behavior: Appropriate, cooperative Results & Data Results & Data Vital Signs (Past 12 Hours) Vital Signs Temp Pulse Pulse Resp BP Pulse Ox O2 Del Method 05/14/22 15:21 36.6 C 70 18 128/80 92 Nasal Cannula 05/14/22 07:56 36.7 C 63 16 127/81 93 Nasal Cannula 05/14/22 07:15 Nasal Cannula O2 Flow Rate 05/14/22 15:21 2 05/14/22 07:56 2 05/14/22 07:15 2 PG Care Time/CCT Total # of Minutes Spent Total Time Spent with Patient: Total time spent is greater than 50% in coordination of care (as documented) at patient's floor/unit and/or counseling patient: Coding Level of Care Code 58914 SUB INP/OBS CARE 35MIN Diagnoses Hypoxia R09.02 Wheezing R06.2 Coronavirus infection B34.2 Diabetes mellitus E11.9 Hyperlipidemia E78.5 Hypertension I10
[2022-05-14] MEDS: AZITHROMYCIN 250 MG TAB PO SCH (18:36)
[2022-05-14] MEDS: ENOXAPARIN INJ 40 MG/0.4 ML SYR SQ SCH (21:00)
[2022-05-15 08:59] LABS: Creatinine Clr Calc Pharmacy 108.8 ml/min; Est GFR (African American) 106.8 ml/min; Est GFR (Non-African American) 92.1 ml/min
[2022-05-15] MEDS ORDERED: predniSONE 20 MG TAB PO SCH (09:00)
[2022-05-15] MEDS: lisinopril 10 MG TAB PO SCH (09:12)
[2022-05-15] MEDS: ATORVASTATIN 40 MG TAB PO SCH (09:12)
[2022-05-15] MEDS: hydroCHLOROthiazide 25 MG TAB PO SCH (09:12)
[2022-05-15] MEDS: NICOTINE 14 MG/24 HR PATCH TD SCH (09:12)
[2022-05-15] MEDS: INSULIN ASPART PER UNIT CHARGE SC SCH (09:17)
[2022-05-15] MEDS: LANTUS PER UNIT CHARGE SQ SCH (09:17)
--- NOTE | 2022-05-15 10:39 | Discharge Summary ---
Date of Service May 15, 2022 Admission HPI Per Admitting Provider Patient is a 66-year-old male with a past medical history of hyperlipidemia, hypertension, and diabetes on metformin who presents to the emergency department for 3 to 4-day history of progressively worsening shortness of breath and congestion. Patient reports that he was getting shortness of breath with exertion, however, today he was experiencing the shortness of breath at rest. He has a pulse ox at home and found that his pulse ox was in the 80s. This prompted him to come to the emergency room for further evaluation. He does have a 20+ pack year smoking history currently smoking a pack of cigarettes per day. No formal diagnosis of COPD. Reports that he has never wheezed or had difficulty with breathing before. Reports that he never measured his temperature but he was feeling warm and had chills. No vomiting, diarrhea, nausea, headache. Patient is COVID vaccinated. No other complaints at this time. ED course: Lab results were significant for hyponatremia at 134, glucose of 273, most recent hemoglobin A1c of 7.2, and positive coronavirus OC 43 detected. Patient is COVID-negative. Chest x-ray taken did not show any acute pulmonary or cardiac pathology. Patient was given cefepime, azithromycin, methylprednisone, and breathing treatments. The hospital service was then consulted for admission to the hospital. Admission Exam Per Admitting Provider Constitutional: WD/WN, vitals as above Eyes: + anicteric sclerae ENMT: external ear and nose normal, oropharynx normal Neck: trachea midline, no thyromegaly Respiratory: normal respiratory effort; no respiratory distress Auscultation: + wheezes and + bronchial breath sounds Cardiovascular: RRR, no murmur, no edema Gastrointestinal (Abdomen): normal bowel sounds, soft, nontender, no hepatosplenomegaly Musculoskeletal: Head/Neck/Chest: normocephalic and head atraumatic Skin: no rashes, warm and dry Neurologic: moves all extremities Psychiatric: A+Ox3, euthymic affect Lymphatic: no cervical or axillary lymphadenopathy Principal Diagnosis Probable undiagnosed COPD with exacerbation due to coronavirus infection Discharge Exam General: Awake, conversant Heart: S1, S2/regular rate and rhythm, no murmur rubs or gallops Lungs: Bilateral wheezing slightly better today with prolonged expiration. Normal effort Abdomen: Soft/nontender/nondistended. No hepatosplenomegaly Extremities: No clubbing/cyanosis. No edema Behavior: Appropriate, cooperative Discharge Data Allergies Allergy/AdvReac Type Severity Reaction Status Date / Time No Known Allergies Allergy Verified 05/12/22 21:30 Consultations 05/12/22 21:29 ED Decision to Admit Stat Hospital Course (1) Hypoxia: -Suspect undiagnosed COPD with COPD exacerbation due to coronavirus infection. Other differential could include early viral pneumonia. -Discharged on p.o. azithromycin to complete a course Patient is not wheezing as much anymore. We will discharge him on p.o. prednisone tapering dose -Patient is not needing oxygen on exertion -Procalcitonin negative Advised on smoking cessation Advised to follow-up with PCP in 1 week Advised that the patient will need pulmonary function test to diagnose and manage COPD (2) Wheezing: See plan above (3) Coronavirus infection: See plan above (4) Diabetes mellitus: -Metformin switch to basal bolus insulin with sliding scale (5) Hyperlipidemia: -Continue atorvastatin (6) Hypertension: -contine lisinopril and HCTZ Plan Diet: Carb consistent CODE STATUS: Full code Total Time Total Time Spent Total Time Spent (In Minutes): 35 Discharge Plan Discharge Items Patient Disposition: Home - Self-Care Reason For Visit: SOB Discharge Diagnosis: Acute on chronic COPD, likely undiagnosed COPD, coronavirus infection Condition on Discharge: Fair Activity: Resume your previous activity Non-emergency contact: Primary Care Provider Call non-emergency contact if: your symptoms worsen Follow-up/Referrals: Pricilla Rojas CRNP [Primary Care Provider] - 05/23/22 10:30 am Diet: Regular Addtl Attending Provider Instructions: Advised to follow-up with PCP in 1 week Advised to quit smoking Pending Studies at Discharge: No Stand-Alone Forms: [facility], Smoking Cessation Medications and DC Order Prescriptions: New azithromycin 250 mg Tablet 500 mg PO Q24H Qty: 2 0RF prednisone 10 mg tablet 10 mg PO DAILY Qty: 20 0RF Rx Instructions: 4 tabs for 2 days, then drop by 1 tab every 2 days, then stop Continued atorvastatin 40 mg tablet 40 mg PO DAILY Qty: 90 3RF lisinopril 10 mg tablet 10 mg PO DAILY Qty: 90 3RF hydrochlorothiazide 50 mg tablet 50 mg PO .COMPLEX Qty: 90 3RF Rx Instructions: 50 mg PO daily in the morning with orange juice.; ketoconazole 2 % cream 1 applic topical DAILY PRN (Reason: flare ups) metformin 500 mg tablet extended release 24 hr 500 mg PO BID Discharge Orders: Discharge Order (Routine); Ordered 05/15/22 Ordered By: Jamie Trevino Admission Data Admit Date/Time: 05/12/22 22:09 Attending Provider: Jamie Trevino Admit Provider: Sabas Gonzalez Primary Care Provider: Pricilla Rojas Other Providers: Gilson Evans Other Interventions: Discharge Summary Assessment (RN) Last Done: 05/15/22 12:44 Coding Level of Care Code 44119 INP/OBS DISCH >30 MIN Diagnoses Hypoxia R09.02 Wheezing R06.2 Coronavirus infection B34.2 Diabetes mellitus E11.9 Hyperlipidemia E78.5 Hypertension I10
--- NOTE | 2022-05-20 21:48 | Billing Data ---
Date of Service May 20, 2022 Coding Level of Care Code 79368 INT INP/OBS CARE
== END 2022-05-15 14:26 | disposition home or self-care (01) | DRG 190 ==
LOC: ED 19:32 → SUATTDRO 22:09 → 3N 22:09
DX: B97.29 Other coronavirus as the cause of diseases classified elsewhere; Z87.01 Personal history of pneumonia (recurrent); J44.1 Chronic obstructive pulmonary disease with (acute) exacerbation; Z79.899 Other long term (current) drug therapy; J12.9 Viral pneumonia, unspecified; E78.5 Hyperlipidemia, unspecified; F17.210 Nicotine dependence, cigarettes, uncomplicated; J44.0 Chronic obstructive pulmonary disease with (acute) lower respiratory infection; I10 Essential (primary) hypertension; R06.02 Shortness of breath; E11.9 Type 2 diabetes mellitus without complications; Z79.84 Long term (current) use of oral hypoglycemic drugs